=== PATIENT | female | born 1960 | race Caucasian/White ===

== ENCOUNTER 2017-04-22 16:19 | Emergency (ER) | payer BC ==
[2017-04-22 18:40] LABS: HEMOGLOBIN 14.3 gm/dl (12.3-15.3); RED BLOOD COUNT 4.86 M/UL (4.00-5.10); WHITE BLOOD COUNT 10.4 K/UL (4.5-11.0)
== END 2017-04-23 01:57 | disposition home or self-care (01) ==
LOC: ER1 16:19
PROVIDERS: Student in an Organized Health Care Education/Training Program
DX: N28.9 Disorder of kidney and ureter, unspecified (principal); E11.22 Type 2 diabetes mellitus with diabetic chronic kidney disease; N18.9 Chronic kidney disease, unspecified; F17.210 Nicotine dependence, cigarettes, uncomplicated; Z88.2 Allergy status to sulfonamides; Z90.49 Acquired absence of other specified parts of digestive tract
CPT/HCPCS: 36415; 71010; 80048; 80053; 81001; 82550; 82553; 83690; 83874; 84484; 85025; 87086; 93005; 96360; 96361; 99285; J7040

== ENCOUNTER → 2021-01-26 | Outpatient (CLI) | payer OTHER ==
[~2021-01-26] MED LIST: ALLERGY RELIEF10 M1 PO; ATORVASTATIN CA20 MG PO; B 12 PO; CALCIUM+D3 PO; FISH OIL 1,0001 EACH PO; GLIPIZIDE10 MG PO; HEARTBURN RELI150 MG PO; JARDIANCE25 MG PO; LISINOPRIL40 MG PO; METFORMIN HCL1000 MG PO; NORCO 10-325 T1 EACH PO; SPIRONOLACTONE25 MG PO
== END ==
LOC: KOH-I 13:19
DX: F17.210 Nicotine dependence, cigarettes, uncomplicated (principal); J84.10 Pulmonary fibrosis, unspecified
CPT/HCPCS: 71271